=== PATIENT | female | born 1995 | race Caucasian/White ===

== ENCOUNTER → 2017-01-27 | Outpatient (CLI) | payer OTHER ==
[~2017-01-27] MED LIST: GADOBUTROL 10 ML VIAL IVP ONE
== END ==
LOC: FIMAGING 07:05
PROVIDERS: ATTEND Physician Assistant
DX: S82.144A Nondisplaced bicondylar fracture of right tibia, initial encounter for closed fracture (principal); S73.192A Other sprain of left hip, initial encounter; M89.8X6 Other specified disorders of bone, lower leg; M24.10 Other articular cartilage disorders, unspecified site; M65.861 Other synovitis and tenosynovitis, right lower leg; M76.02 Gluteal tendinitis, left hip
CPT/HCPCS: A9585